=== PATIENT | female | born 1955 | race American Indian/Alaskan Native ===

== ENCOUNTER 2017-09-22 18:36 | Emergency (ER) | payer MEDICARE ==
[2017-09-22 19:11] VITALS: BP 151/79
[2017-09-22] MEDS ORDERED: BENADRYL IM ONE (22:19)
[2017-09-22] MEDS ORDERED: DECADRON IM ONE (22:19)
--- NOTE | 2017-09-22 23:32 | Emergency Department Report ---
ED Rash HPI - HPI Chief Complaint: Skin Rash Stated Complaint: RASH ALL OVER BODY Time Seen by Provider: 09/22/17 22:15 Duration: 1 week Location: Chest, Upper Extremities, Other (face) Suspected Cause: Unknown Rash Symptoms: Yes Itching, No Facial Swelling, No Tongue/Oral Swelling, No Breathing Difficulties, No Choking Sensation, No Wheezing/Dyspnea, No Peeling, No Blistering, No Fever, No Lightheaded, No Malaise, No Myalgias Severity: moderate Other History: 61-year-old -[place] female comes in complaining of a rash that she sat on her chest, face, upper extremities, groin area for a week. Patient is unaware of what she could have gotten into. She denies working outside. She reports that there are small little pimple-like bumps that have clear fluid and are very itchy. ED Review of Systems ROS: Stated complaint: RASH ALL OVER BODY Other details as noted in HPI Constitutional: denies: chills, fever Respiratory: denies: cough, shortness of breath, wheezing Cardiovascular: denies: chest pain, palpitations Endocrine: no symptoms reported Gastrointestinal: denies: abdominal pain, nausea, diarrhea Skin: rash Neurological: denies: headache, weakness, paresthesias Psychiatric: denies: anxiety, depression Hematological/Lymphatic: denies: easy bleeding, easy bruising ED Past Medical Hx - Past Medical History Hx Hypertension: Yes Hx Diabetes: Yes Additional medical history: high Cholesterol - Surgical History Past Surgical History?: No - Social History Smoking Status: Former Smoker Substance Use Type: None - Medications Home Medications: Home Medications Medication Instructions Recorded Confirmed Last Taken Type diphenhydrAMINE [Benadryl CAP] 25 mg PO Q8HR PRN #15 capsule 09/22/17 Unknown Rx predniSONE [Deltasone] 5 mg PO QDAY #4 tab 09/22/17 Unknown Rx Rash Exam - Exam General: Vital signs noted. No distress. Alert and acting appropriately. HEENT: No Periorbital Edema, No Conjuctival Injection, No Chemosis, No Perioral Edema, No Tongue Edema, No Uvular Edema, No Compromised Airway, No Drooling Lungs: Yes Good Air Exchange (Normal Breath Sounds), No Wheezes, No Ronchi, No Stridor, No Cough, No Labored Respirations, No Retractions, No Use of Accessory Muscles, No Other Abnormal Lung Sounds Heart: Yes Regular, No Murmur Skin: Yes Other (vesicular rash on face, upper extremities, chest, abdomen), No Urticarial Rash, No Maculopapular Rash, No Morbilliform rash, No Bulla(e), No Excoriations, No Weeping, No Tenderness, No Erythema, No Edema, No Encrustations Other: Positive: Abdomen Normal ED Course Vital Signs 09/22/17 18:54 Temperature 98.4 F Pulse Rate 79 Respiratory 18 Rate Blood Pressure 151/79 O2 Sat by Pulse 99 Oximetry ED Medical Decision Making - Medical Decision Making She has been evaluated by this provider fast track. Patient has a history of diabetes. She is on insulin. Patient was given Benadryl and dexamethasone IM. She reports that the rash has gotten better itching has improved Discussed the patient I will send her home and a low dose of steroids stressed the importance of doing her insulin adjustment based on her blood sugars results. Patient verbalized that she is able to do that just missed to her insulin to accommodate her elevation of her blood glucose. Discussed the patient that I will refer her to dermatology. As well as she should follow-up with her primary care provider. Patient verbalized understanding. Critical care attestation.: If time is entered above; I have spent that time in minutes in the direct care of this critically ill patient, excluding procedure time. ED Disposition Clinical Impression: Rash in adult Disposition: DC-01 TO HOME OR SELFCARE Is pt being admited?: No Does the pt Need Aspirin: No Condition: Stable Instructions: Acute Rash (ED) Additional Instructions: Please take medications as prescribed. Please be sure to adjust your insulin based on your blood sugar results as you are being placed on steroids. Please follow-up with dermatology I have listed their information below. Please also follow-up with her primary care provider. Prescriptions: diphenhydrAMINE [Benadryl CAP] 25 mg PO Q8HR PRN #15 capsule PRN Reason: Itching predniSONE [Deltasone] 5 mg PO QDAY #4 tab Referrals: [facility] [Primary Care Provider] - 3-5 Days [facility] [Provider Group] - 3-5 Days Forms: Work/School Release Form(ED)
== END 2017-09-22 23:57 | disposition home or self-care (01) ==
LOC: ED 18:36
DX: R21 Rash and other nonspecific skin eruption (principal); I10 Essential (primary) hypertension; E11.9 Type 2 diabetes mellitus without complications; E78.00 Pure hypercholesterolemia, unspecified; Z87.891 Personal history of nicotine dependence
CPT/HCPCS: 96372; 99282; J1100; J1200